=== PATIENT | female | born 1970 | race American Indian/Alaskan Native ===

== ENCOUNTER 2016-11-06 21:09 | Emergency (ER) | payer OTHER ==
[2016-11-06 21:09] VITALS: BMI 32.4
[2016-11-06 21:19] VITALS: RESP 16; TEMP 99.5; O2SAT 100
--- NOTE | 2016-11-06 21:44 | C.PDOC ---
History Of Present Illness 45 yo female with DM, c/o sore throat since yesterday associated with subjective fever. No difficulty swallowing. No SOB. No lip or tongue swelling. No change glucose- Tmax 200. No recent illness. Time Seen by Provider: 11/06/16 21:21 Chief Complaint (Nursing): ENT Problem History Per: Patient, Family (daughter) History/Exam Limitations: Language Barrier Onset/Duration Of Symptoms: Days (yesterday) Symptoms Have Been: Continuous Severity: Mild Pain Scale Rating Of: 3 Past Medical History Reviewed: Historical Data, Nursing Documentation, Vital Signs Vital Signs: Last Vital Signs Temp 99.5 F 11/06/16 21:14 Pulse 86 11/06/16 21:51 Resp 16 11/06/16 21:51 BP 121/77 11/06/16 21:51 Pulse Ox 100 11/08/16 12:58 - Medical History PMH: Diabetes, HTN, Hyperthyroidism Family History: States: Unknown Family Hx - Social History Hx Tobacco Use: No Hx Alcohol Use: No Hx Substance Use: No - Immunization History Hx Tetanus Toxoid Vaccination: No Hx Influenza Vaccination: No Hx Pneumococcal Vaccination: No Review Of Systems Except As Marked, All Systems Reviewed And Found Negative. Constitutional: Positive for: Fever ENT: Positive for: Throat Pain. Negative for: Throat Swelling, Other (lip swelling, tongue swelling) Respiratory: Negative for: Shortness of Breath Physical Exam - Physical Exam Appears: Non-toxic, No Acute Distress Skin: Warm, Dry Head: Atraumatic, Normacephalic Eye(s): bilateral: Normal Inspection, EOMI Ear(s): Bilateral: Normal Nose: Normal Oral Mucosa: Moist Tongue: Normal Appearing, No Swelling Lips: Normal Appearing, No Swelling Throat: Erythema, Exudate Neck: Normal ROM, Supple Lymphatic: Adenopathy (cervical) Chest: Symmetrical Cardiovascular: Rhythm Regular Respiratory: Normal Breath Sounds, No Rales, No Rhonchi, No Wheezing Back: Normal Inspection Extremity: Normal ROM Neurological/Psych: Oriented x3, Normal Speech, Normal Cognition Gait: Steady ED Course And Treatment O2 Sat by Pulse Oximetry: 100 (room air) Pulse Ox Interpretation: Normal Progress Note: Patient is resting comfortably, tolerating PO, and is afebrile at this time. Patient will be discharged home, and instructed to follow up with physician in 1-2 days without fail. Patient was instructed to return for any worsening symptoms, persistent fever, neck pain, rash, abdominal pain, or vomiting. Disposition - Disposition Disposition: HOME/ ROUTINE Disposition Time: 21:41 Condition: GOOD Additional Instructions: Take Tylenol or Motrin alternating every 4-6 hours for Fever 100.4F or higher. Rest and drink plenty of fluids to prevent dehydration. May also try lozenges or cepacol spary over the counter. Prescriptions: Amoxicillin 875 mg PO BID #14 tablet Ibuprofen [Motrin] 600 mg PO Q6 PRN #20 tab PRN Reason: Pain, Mild (1-3) Instructions: Pharyngitis (ED) - Clinical Impression Clinical Impression: Pharyngitis
[2016-11-06 21:52] VITALS: BP 121/77; PULSE 86
== END 2016-11-06 21:51 | disposition home or self-care (01) ==
LOC: C.ER 21:09
DX: J02.9 Acute pharyngitis, unspecified (principal)